=== PATIENT | female | born 1955 | race Two or more races ===

== ENCOUNTER 2018-04-08 07:15 | Emergency (ER) | payer MEDICARE, OTHER ==
[~2018-04-08] VITALS: Ht 152.4 cm; Wt 60.8 kg
[2018-04-08 07:23] VITALS: Ht 152.4 cm; Wt 60.8 kg
[2018-04-08 08:04] LABS: BASOPHIL % 0.4 % (0-2); PLATELET COUNT 216 x10^3mcL (130-400); RED CELL DISTRIBUTION WIDTH 13.2 % (11.5-14.5)
[2018-04-08 08:23] LABS: CARBON DIOXIDE 27.6 mmol/L (21-32); CHLORIDE SERUM 104 mmol/L (98-107); CREATININE SERUM 0.8 mg/dL (0.6-1.0); GFR1 > 60 mL/min; GLUCOSE SERUM 175 mg/dL (74-106); POTASSIUM SERUM 3.5 mmol/L (3.5-5.1); SODIUM SERUM 141 mmol/L (136-145)
[2018-04-08 11:40] VITALS: BP 138/74
== END 2018-04-08 11:40 | disposition home or self-care (01) ==
LOC: ED 07:15
PROVIDERS: Emergency Medicine
DX: R42 Dizziness and giddiness (principal); R11.2 Nausea with vomiting, unspecified
CPT/HCPCS: J2405; Q0092